=== PATIENT | female | born 1965 | race Caucasian/White ===

== ENCOUNTER → 2017-07-06 | Outpatient (CLI) | payer OTHER ==
[~2017-07-06] MED LIST: ADAL20KI SC; CALC600T9 PO; FOLI1TAB7 PO; IBUP1CAP9 PO; METH2.5T PO; PRD/1 PO; VITA1TAB4 PO
--- NOTE | 2017-07-06 16:11 | MAMMOGRAPHY REPORT ---
BILATERAL DIGITAL SCREENING MAMMOGRAM TOMOSYNTHESIS WITH CAD: 07/06/2017 CLINICAL HISTORY: Routine screening. Patient has no complaints. TECHNIQUE: Breast tomosynthesis in addition to standard 2D mammography was performed. Current study was also evaluated with a Computer Aided Detection (CAD) system. COMPARISON: Comparison is made to exams dated: 07/04/2016 mammogram, 05/26/2015 mammogram, 03/25/2014 m ammogram, 03/14/2013 mammogram, 06/01/2011 mammogram, and 05/07/2010 mammogram - [facility] nter. BREAST COMPOSITION: The tissue of both breasts is heterogeneously dense, which may obscure small mas ses. FINDINGS: No suspicious masses, calcifications, or areas of architectural distortion are noted in ei ther breast. There has been no significant interval change compared to prior exams. IMPRESSION: ACR BI-RADS CATEGORY 1: NEGATIVE There is no mammographic evidence of malignancy. A 1 year screening mammogram is recommended. The pa tient will receive written notification of the results. Approximately 10% of breast cancers are not detected with mammography. A negative mammographic report should not delay biopsy if a clinically suggestive mass is present. Becky Demarco M.D. ah/:07/06/2017 15:42:43 Salesperson Corsets: Eduarda STORM(R)(M), [facility] letter sent: Normal 1/2 BI-RADS Code: ACR BI-RADS Category 1: Negative
== END | disposition home or self-care (01) ==
LOC: C.MAMM 10:48
PROVIDERS: ATTEND Nurse Practitioner
DX: Z12.31 Encounter for screening mammogram for malignant neoplasm of breast (principal)

== ENCOUNTER → 2018-03-08 | Outpatient (CLI) | payer OTHER ==
[~2018-03-08] MED LIST changes: -FOLI1TAB7 PO; +FOLI1TAB8 PO
== END | disposition home or self-care (01) ==
LOC: C.LABPVFM 10:16
PROVIDERS: ATTEND Nurse Practitioner
DX: R82.99 Other abnormal findings in urine (principal)

== ENCOUNTER → 2018-03-27 | Outpatient (CLI) | payer OTHER | END | disposition home or self-care (01) | LOC: C.LABPVFM 17:03 | PROVIDERS: ATTEND Nurse Practitioner | DX: R39.9 Unspecified symptoms and signs involving the genitourinary system (principal) ==

== ENCOUNTER → 2018-06-15 | Outpatient (CLI) | payer OTHER ==
[~2018-06-15] MED LIST changes: -IBUP1CAP9 PO; +IBUP200C80 PO
[2018-06-15 13:14] LABS: BLOOD UREA NITROGEN 24 mg/dl (7-18); CALCIUM 8.6 mg/dl (8.5-10.1); CARBON DIOXIDE 27 mmol/L (21-32); CHOLESTEROL 210 mg/dl (0-200); CREATININE 0.65 mg/dl (0.60-1.20); GLUCOSE 97 mg/dl (70-99); LDL CHOLESTEROL CALCULATED 135 mg/dl; SODIUM 139 mmol/L (136-145)
== END | disposition home or self-care (01) ==
LOC: C.LABPVFM 07:46
PROVIDERS: ATTEND Nurse Practitioner
DX: Z00.00 Encounter for general adult medical examination without abnormal findings (principal)

== ENCOUNTER 2022-05-09 09:52 | Observation (INO) ==
--- NOTE | 2022-05-09 10:09 | Emergency Department Note ---
Impression & Plan COVID-19, Immunosuppression, Hypoxemia, Acute dehydration ED Provider Note NAME: BRYNN CUENCA AGE: 57 SEX: F : 1965 ARRIVES VIA: Walk-In INFORMANT: Patient, ED PROVIDER(S): Darrell Ross MD Chief Complaint: COVID-positive, hypoxemic HPI: Patient presents at the behest of her primary care doctor secondary to COVID symptoms and associated hypoxemia. The patient denies any chest pains or shortness of breath but noticed that her pulse oximeter this morning was that [id number]%. The patient is a former smoker last smoked in 2012. The patient denies any shortness of breath or chest pains. Patient has had some mild headache but no falls or trauma. The patient did develop symptoms beginning yesterday and took a home COVID test this morning. The patient does work for [employer] and [employer]. Patient was called by her PCP was referred here for further evaluation and treatment. The patient did not take her methotrexate this morning. The patient is not taking anything for symptoms at home. Patient also does complain of some mild associated body aches. No vomiting. Patient does state that she has had a change in her taste. The patient's not eaten anything this morning. ROS: See HPI for pertinent positives and negatives. A total of 10 systems were reviewed and otherwise negative. Past medical history: See below Surgical history: See below Social history: See below Physical Exam: GENERAL: NAD, wearing glasses, wearing a mask, non-toxic. EYE EXAM: Normal conjunctiva. PERRL, no anisocoria and EOM's grossly intact w/o pain. NECK: Supple, no nuchal rigidity, no adenopathy, non-tender. No signs of meningismus. FROM of the neck with good chin to chest and neck extension. No stridor. LUNGS: Clear to auscultation. Normal chest wall mechanics. HEART: NSR, no MRG. ABDOMEN: Abdomen soft, non-tender, normo-active bowel sounds, no masses, no r ebound or guarding. BACK: No CVA TTP. SKIN: No rashes and no bruising. UPPER EXTREMITIES: Upper extremities are grossly normal. LOWER EXTREMITIES: Grossly normal, no edema. NEURO EXAM: A&O x3, cranial nerves II-XII grossly intact, normal speech, moves all 4 extremities on command w/o issue. Differential diagnoses: Reactive airway disease, pneumonia, pneumothorax, COPD, CHF, infections, cardiac ischemia, pulmonary embolism, musculoskeletal, gastrointestinal, as well as other pathologies. Course: Patient was seen and evaluated the bedside. Full history physical exam was performed. EKG interpreted by me Sinus rhythm, rate of 79, normal intervals, normal axis, no obvious ST elevations. Imaging Studies: See Below Cardiac monitoring: An order was placed for continuous cardiac monitoring. The monitor shows a rate of 82 with sinus rhythm. MDM: Patient presented due to concern for hypoxemia in the setting of recent COVID illness the patient became symptomatic yesterday to go home COVID test today that was positive. Blood work was obtained along with a chest x-ray and the patient was ordered IV 6 mg of dexamethasone. Chest x-ray is clear. The patient did not complain of any shortness of breath but given the patient's history of lung disease, former smoking history as well as immunosuppressive therapy on methotrexate given history of rheumatoid arthritis do think that the patient would benefit from continued observation and treatment at this time. Patient is a normal white count H&H and platelet count. Kidney function is unremarkable. Patient did have some prerenal azotemia and did receive IV fluids. The patient is COVID-positive. Troponin is not elevated. I did speak with the on-call hospitalist Dr. Dial and the patient was admitted to the medicine service. Past Med/Surg History Medical History Chronic obstructive pulmonary disease Chronic steroid use GERD (gastroesophageal reflux disease) History of TMJ syndrome clicks on the right side, never locked. Hyperlipidemia Mass of soft tissue Obesity Rheumatoid arthritis Situational anxiety Surgical History H/O hand surgery right hand with tendon repair History of carpal tunnel release right History of colonoscopy History of D&C S/P trigger finger release left Family History Unknown Hypertension Other Alzheimer disease COPD (chronic obstructive pulmonary disease) Cancer Diabetes Hypothyroidism No family history of adverse response to anesthesia Denies family history of Ovarian cancer Prostate cancer Osteoporosis Myocardial infarction Breast cancer Colorectal cancer Social History Smoking Status: Former smoker Tobacco Type: Cigarettes Years Smoked: 32; Cigarettes Per Day: 20; Second Hand Exposure: Yes; Hx Alcohol Use: Yes Alcohol Intake Frequency: Monthly or Less Alcohol Intake Frequency Comment: Very rarely Hx Substance Use: No Preferred Language: Andorran Communication Ability: Effective Visual Impairment: No Limitations Hearing Ability: Normal Capsule Maker Required: No Beliefs That Will Affect Care: None marital status: Current Living Situation: Spouse current occupational status: employed 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 Feels Safe at Home: Yes caffeine: No Dental Care, Regularly: Yes Physical Activity Frequency: 3-4 Times per Week Seatbelt Use: always Sunscreen Use: Yes Assistive Devices: Glasses Allergies Allergies Allergy/AdvReac Type Severity Reaction Status Date / Time naproxen Allergy Unknown REDNESS, Verified 02/16/22 08:39 SHAKINESS, DIFFICULTY BREATHING Home Meds Home Medications Medication Instructions Recorded Confirmed calcium carbonate 600 mg-vitamin 1 tab PO QAM 06/04/19 02/16/22 D3 10 mcg (400 unit) tablet (Calcium 600 + D(3)) fluticasone propionate 50 1 sprays INTRANASAL BID PRN #1 gm 06/04/19 02/16/22 mcg/actuation nasal spray,suspension vitamin E (dl, acetate) 180 mg 400 units PO QAM 06/04/19 02/16/22 (400 unit) capsule cholecalciferol (vitamin D3) 25 1,000 units PO QAM #90 cap 06/14/19 02/16/22 mcg (1,000 unit) capsule cyanocobalamin (vitamin B-12) 1,000 mcg PO QAM tab 06/14/19 02/16/22 1,000 mcg tablet folic acid 1 mg tablet 1 mg PO QAM tab 06/14/19 02/16/22 methotrexate sodium 2.5 mg tablet 20 mg PO WK tab 06/14/19 02/16/22 fluocinonide 0.05 % topical 1 appln TOPICAL TID PRN gm 12/27/19 02/16/22 ointment leflunomide 10 mg tablet (Arava) 10 mg PO QAM 12/27/19 02/16/22 fexofenadine 180 mg tablet 180 mg PO QAM 01/24/22 02/16/22 (Evy Allergy) meclizine 25 mg tablet 25 mg PO UD PRN 01/24/22 02/16/22 prednisone 20 mg tablet 20 mg PO .COMPLEX PRN 01/24/22 02/16/22 triamcinolone acetonide 0.1 % 1 appln TOP BID PRN 01/24/22 02/16/22 topical ointment Previous Rx's Medication Instructions Recorded adalimumab 40 mg/0.8 mL 40 mg SQ Q14D #3 ml 11/11/19 subcutaneous syringe kit (Humira) valacyclovir 500 mg tablet 500 mg PO BID PRN #6 tab 08/12/21 albuterol sulfate 90 mcg/actuation 2 puff INHALATION Q6H PRN #8.5 g 10/04/21 aerosol inhaler (Ventolin HFA) benzonatate 100 mg capsule 100 mg PO TID PRN #30 cap 02/04/22 nebulizer and neb kit #1 ea 02/04/22 albuterol sulfate 2.5 mg INHALATION QID PRN #180 ml 02/18/22 atorvastatin 10 mg tablet 10 mg PO HS #90 tab 02/18/22 escitalopram oxalate 20 mg tablet 20 mg PO QAM #90 tab 02/18/22 omeprazole 20 mg capsule,delayed 20 mg PO QAM #90 cap 02/18/22 release fluticasone furoate 100 1 inh INHALATION DAILY PRN #3 02/28/22 mcg-vilanterol 25 mcg/dose inhaler inhalation powder (Breo Ellipta) Results & Data (ED) Vital Signs Vital Signs - 24 hr 05/09/22 09:53 05/09/22 11:01 05/09/22 11:16 Temperature 36.4 C L Temperature Source Temporal Artery Scan Pulse Rate 91 H 91 H 82 Pulse Rate from SpO2 Sensor 81 Pulse Rhythm Regular Respiratory Rate 16 16 19 Blood Pressure 125/82 124/91 Blood Pressure Mean 96 102 Pulse Oximetry 94 94 91 Oxygen Delivery Method Room Air Room Air Room Air Sepsis Recent Fever Within 48 Hours No Sepsis New/Unexplained Change in Mental Status No Sepsis Action Taken by Nursing No Action Required 05/09/22 11:30 05/09/22 12:00 05/09/22 12:30 Temperature Temperature Source Pulse Rate 72 74 72 Pulse Rate from SpO2 Sensor 73 75 Pulse Rhythm Respiratory Rate 23 18 14 Blood Pressure 127/84 116/84 123/86 Blood Pressure Mean 98 94 98 Pulse Oximetry 91 91 Oxygen Delivery Method Sepsis Recent Fever Within 48 Hours Sepsis New/Unexplained Change in Mental Status Sepsis Action Taken by Nursing 05/09/22 13:00 05/09/22 13:42 Temperature Temperature Source Pulse Rate 72 72 Pulse Rate from SpO2 Sensor 73 Pulse Rhythm Respiratory Rate 20 20 Blood Pressure 124/90 124/90 Blood Pressure Mean 101 Pulse Oximetry 93 93 Oxygen Delivery Method Room Air Sepsis Recent Fever Within 48 Hours Sepsis New/Unexplained Change in Mental Status Sepsis Action Taken by Care Home Medications Current Medication List: was personally reviewed by me Laboratory Data Attestation: I reviewed the patient's lab results. Result diagrams: 05/09/22 10:54 05/09/22 12:06 Lab Results 05/09/22 05/09/22 05/09/22 Range/Units 10:54 10:54 10:54 WBC 6.60 (4.8-10.8) K/uL RBC 4.71 (4.2-5.4) M/uL Hgb 14.5 (12.0-16.0) g/dL Hct 44.1 (37-47) % MCV 93.6 (80-100) fL MCH 30.8 (25-34) pg MCHC 32.9 (32-36) g/dL RDW Std Deviation 49.9 H (36.4-46.3) fL RDW Coeff of Ivonne 14.7 H (11.5-14.5) % Plt Count 233 (130-400) K/uL MPV 10.5 H (7.4-10.4) fL Immature Gran % (Auto) 0.0 % Neut % (Auto) 50.2 % Lymph % (Auto) 22.6 % [place] % (Auto) 26.7 % Eos % (Auto) 0.2 % Baso % (Auto) 0.3 % Neut # (Auto) 3.32 (1.4-6.5) K/uL Lymph # (Auto) 1.49 (1.2-3.4) K/uL [place] # (Auto) 1.76 H (0.11-0.59) K/uL Eos # (Auto) 0.01 (0-0.5) K/uL Baso # (Auto) 0.02 (0-0.2) K/uL Immature Gran # (Auto) 0.00 (0.00-0.02) K/uL VBG pH 7.37 (7.36-7.41) VBG pCO2 45 (38-50) mmHg VBG pO2 61 mmHg VBG HCO3 26 mmol/L VBG O2 Saturation 91.1 % VBG Base Excess 0.3 mEq/L Sodium 137 (136-145) mmol/L Potassium TNP Chloride 104 (98-107) mmol/L Carbon Dioxide 25 (21-32) mmol/L Anion Gap 8 (3-11) BUN 18 (6-23) mg/dl Creatinine 0.72 (0.6-1.2) mg/dl Est Cr Clr Drug Dosing 82.4 ml/min Est GFR ( Amer) 106.2 ml/min Est GFR (Non-Af Amer) 91.7 ml/min BUN/Creatinine Ratio 25.0 H (10-20) Glucose 89 (70-99(Fasting)) mg/dl Calcium 9.2 (8.5-10.1) mg/dl Magnesium 2.0 (1.7-2.4) mg/dl Total Bilirubin 0.4 (0.2-1.0) mg/dl AST TNP ALT 32 (7-52) U/L Alkaline Phosphatase 67 (34-104) U/L Troponin I High Sens 6.9 (0-14) pg/ml Total Protein 7.6 (6.0-8.3) gm/dl Albumin 4.3 (3.4-5.0) gm/dl Globulin 3.3 (2.5-4.0) gm/dl Albumin/Globulin Ratio 1.3 (0.9-2) SARS-CoV-2, RNA, NAAT (NEGATIVE) 05/09/22 05/09/22 Range/Units 11:00 12:06 WBC (4.8-10.8) K/uL RBC (4.2-5.4) M/uL Hgb (12.0-16.0) g/dL Hct (37-47) % MCV (80-100) fL MCH (25-34) pg MCHC (32-36) g/dL RDW Std Deviation (36.4-46.3) fL RDW Coeff of Ivonne (11.5-14.5) % Plt Count (130-400) K/uL MPV (7.4-10.4) fL Immature Gran % (Auto) % Neut % (Auto) % Lymph % (Auto) % [place] % (Auto) % Eos % (Auto) % Baso % (Auto) % Neut # (Auto) (1.4-6.5) K/uL Lymph # (Auto) (1.2-3.4) K/uL [place] # (Auto) (0.11-0.59) K/uL Eos # (Auto) (0-0.5) K/uL Baso # (Auto) (0-0.2) K/uL Immature Gran # (Auto) (0.00-0.02) K/uL VBG pH (7.36-7.41) VBG pCO2 (38-50) mmHg VBG pO2 mmHg VBG HCO3 mmol/L VBG O2 Saturation % VBG Base Excess mEq/L Sodium (136-145) mmol/L Potassium 3.7 Chloride (98-107) mmol/L Carbon Dioxide (21-32) mmol/L Anion Gap (3-11) BUN (6-23) mg/dl Creatinine (0.6-1.2) mg/dl Est Cr Clr Drug Dosing ml/min Est GFR ( Amer) ml/min Est GFR (Non-Af Amer) ml/min BUN/Creatinine Ratio (10-20) Glucose (70-99(Fasting)) mg/dl Calcium (8.5-10.1) mg/dl Magnesium (1.7-2.4) mg/dl Total Bilirubin (0.2-1.0) mg/dl AST 28 ALT (7-52) U/L Alkaline Phosphatase (34-104) U/L Troponin I High Sens (0-14) pg/ml Total Protein (6.0-8.3) gm/dl Albumin (3.4-5.0) gm/dl Globulin (2.5-4.0) gm/dl Albumin/Globulin Ratio (0.9-2) SARS-CoV-2, RNA, NAAT POSITIVE A* (NEGATIVE) Administered Medications Discontinued Medications Acetaminophen (Acetaminophen 500 Mg Tab) 1,000 mg PO NOW STA Stop: 05/09/22 10:22 Last Admin: 05/09/22 11:02 Dose: 1,000 mg Documented by: [id number] Dexamethasone Sodium Phosphate (DexamethasonePf 10 Mg/Ml Vial) 6 mg IV NOW ONE Stop: 05/09/22 10:18 Last Admin: 05/09/22 11:01 Dose: 6 mg Documented by: [id number] Sodium Chloride (Nss 1000ml) 1,000 mls @ 999 mls/hr IV .Q1H1M REJI Stop: 05/09/22 11:30 Last Infusion: 05/09/22 12:21 Dose: 0 mls/hr Documented by: [id number] Admin: 05/09/22 11:01 Dose: 999 mls/hr Documented by: [id number] Ondansetron HCl (Ondansetron Inj 2 Mg/Ml 2 Ml Vial) 4 mg IV NOW STA Stop: 05/09/22 10:22 Last Admin: 05/09/22 11:01 Dose: 4 mg Documented by: [id number] Imaging Data Radiologist's Impression: Chest X-Ray 05/09/22 10:18 XR chest 1V portable CLINICAL HISTORY: Dyspnea TECHNIQUE: Single frontal radiograph of the chest was obtained. Comparison: Comparison is made to chest radiograph 02/04/2022 FINDINGS: No lines and tubes are seen. The cardiomediastinal silhouette is normal. The lungs are clear. No evidence of pleural effusion or pneumothorax. IMPRESSION: No acute chest disease. ACT 112: Negative or not required by law. Electronically signed by: Pj Hoffman M.D. 05/09/2022 10:45 AM Discharge Plan Visit Data Chief Complaint: Illness Stated Complaint: COUGH,OWEN,BODY ACHE,HIGH PULSE ED Provider: Darrell Ross Discharge Problem: COVID-19, Immunosuppression, Hypoxemia, Acute dehydration Patient Disposition: Admitted As Inpatient Discharge Instructions Interventions: ED Discharge Assessment Last Done: 05/09/22 13:42 Forms Stand Alone Forms: My [facility] Prescriptions Prescriptions: No Action Humira 40 mg/0.8 mL syringe kit 40 mg SQ Q14D Qty: 3 RF: 0 valacyclovir 500 mg tablet 500 mg PO BID PRN (Reason: cold sore outbreak) Qty: 6 RF: 4 albuterol sulfate [Ventolin HFA] 90 mcg/actuation HFA aerosol inhaler 2 puff inhalation Q6H PRN (Reason: bronchospasm) Qty: 8.5 RF: 3 benzonatate 100 mg capsule 100 mg PO TID PRN (Reason: cough) Qty: 30 RF: 3 (DME) nebulizer and neb kit See Rx Instructions .Route .MEDSUPPLY Qty: 1 RF: 0 albuterol sulfate 2.5 mg /3 mL (0.083 %) solution for nebulization 2.5 mg inhalation QID PRN (Reason: shortness of breath or wheezing) Qty: 180 RF: 3 atorvastatin 10 mg tablet 10 mg PO HS Qty: 90 RF: 3 escitalopram oxalate 20 mg tablet 20 mg PO QAM Qty: 90 RF: 3 omeprazole 20 mg capsule,delayed release(DR/EC) 20 mg PO QAM Qty: 90 RF: 3 Breo Ellipta 100-25 mcg/dose blister with device 1 inh inhalation DAILY PRN (Reason: allergy symptoms) Qty: 3 RF: 3 leflunomide [Arava] 10 mg tablet 10 mg PO QAM RF: 0 fluticasone propionate 50 mcg/actuation spray,suspension 1 sprays intranasal BID PRN (Reason: allergy symptoms) Qty: 1 RF: 0 vitamin E (dl, acetate) 400 unit capsule 400 units PO QAM RF: 0 calcium carbonate-vitamin D3 [Calcium 600 + D(3)] 600 mg(1,500mg) -400 unit tablet 1 tab PO QAM RF: 0 cholecalciferol (vitamin D3) 1,000 unit capsule 1,000 units PO QAM Qty: 90 RF: 0 cyanocobalamin (vitamin B-12) 1,000 mcg tablet 1,000 mcg PO QAM RF: 0 folic acid 1 mg tablet 1 mg PO QAM RF: 0 methotrexate sodium 2.5 mg tablet 20 mg PO WK RF: 0 fluocinonide 0.05 % ointment 1 appln topical TID PRN (Reason: rash) RF: 0 prednisone 20 mg tablet 20 mg PO .COMPLEX PRN (Reason: RA Flare Ups) RF: 0 fexofenadine [Evy Allergy] 180 mg tablet 180 mg PO QAM RF: 0 meclizine 25 mg tablet 25 mg PO UD PRN (Reason: dizziness) RF: 0 triamcinolone acetonide 0.1 % ointment 1 appln TOP BID PRN (Reason: Skin Irritation) RF: 0 Referrals Referrals: Nicole Wilburn CRNP [Primary Care Provider] -
[2022-05-09] MEDS ORDERED: dexAMETHasone**PF** 10 MG/ML VIAL IV ONE (10:17)
[2022-05-09] MEDS ORDERED: ACETAMINOPHEN 500 MG TAB PO STA (10:21)
[2022-05-09] MEDS ORDERED: ONDANSETRON INJ 2 MG/ML 2 ML VIAL IV STA (10:21)
[2022-05-09] MEDS ORDERED: SODIUM CHLORIDE 0.9% 1000ML 1,000 ML IV SCH (10:30)
--- NOTE | 2022-05-09 10:46 | XRay Report ---
XR chest 1V portable CLINICAL HISTORY: Dyspnea TECHNIQUE: Single frontal radiograph of the chest was obtained. Comparison: Comparison is made to chest radiograph 02/04/2022 FINDINGS: No lines and tubes are seen. The cardiomediastinal silhouette is normal. The lungs are clear. No evid ence of pleural effusion or pneumothorax. IMPRESSION: No acute chest disease. ACT 112: Negative or not required by law. Electronically signed by: Pj Hoffman M.D. 05/09/2022 10:45 AM
[2022-05-09 11:07] LABS: Base Excess VBG 0.3 mEq/L; HCO3 VBG 26 mmol/L; Oxygen Saturation VBG 91.1 %; PCO2 VBG 45 mmHg (38-50); PO2 VBG 61 mmHg; pH VBG 7.37 (7.36-7.41)
[2022-05-09 11:18] LABS: Basophils # (auto) 0.02 K/uL (0-0.2); Basophils % (auto) 0.3 %; Eosinophils # (auto) 0.01 K/uL (0-0.5); Eosinophils % (auto) 0.2 %; Hematocrit (blood only) 44.1 % (37-47); Hemoglobin 14.5 g/dL (12.0-16.0); Lymphocytes # (auto) 1.49 K/uL (1.2-3.4); Lymphocytes % (auto) 22.6 %; Mean Corpuscular Hemoglobin 30.8 pg (25-34); Mean Corpuscular Hgb Conc 32.9 g/dL (32-36); Mean Corpuscular Volume 93.6 fL (80-100); Mean Platelet Volume 10.5 fL (7.4-10.4); Monocytes # (auto) 1.76 K/uL (0.11-0.59); Monocytes % (auto) 26.7 %; Neutrophils # (auto) 3.32 K/uL (1.4-6.5); Neutrophils % (auto) 50.2 %; Platelet Count 233 K/uL (130-400); RDW Coefficient of Variation 14.7 % (11.5-14.5); RDW Standard Deviation 49.9 fL (36.4-46.3); Red Blood Count 4.71 M/uL (4.2-5.4)
[2022-05-09 11:36] LABS: Alanine Aminotransferase 32 U/L (7-52); Albumin Globulin Ratio 1.3 (0.9-2); Albumin Level 4.3 gm/dl (3.4-5.0); Alkaline Phosphatase 67 U/L (34-104); Anion Gap 8 (3-11); Bilirubin,Total 0.4 mg/dl (0.2-1.0); Blood Urea Nitrogen 18 mg/dl (6-23); Calcium 9.2 mg/dl (8.5-10.1); Carbon Dioxide 25 mmol/L (21-32); Chloride 104 mmol/L (98-107); Creatinine Clr Calc Pharmacy 82.4 ml/min; Est GFR (African American) 106.2 ml/min; Est GFR (Non-African American) 91.7 ml/min; Globulin 3.3 gm/dl (2.5-4.0); Glucose 89 mg/dl (70-99(Fasting)); Sodium 137 mmol/L (136-145); Total Protein 7.6 gm/dl (6.0-8.3); Troponin I High Sensitivity 6.9 pg/ml (0-14)
--- NOTE | 2022-05-09 12:37 | History & Physical Report ---
Date of Service May 09, 2022 Assessment & Plan (1) COVID-19: Plan: Admitted on day 2 of illness Vaccinated and boosted VOID isolation precautions Remdesivir - initial 5 day course Dexamethasone 6mg IV daily Hold leflunomide and methotrexate Aim O2 sats > 90% (2) Allergic rhinitis: Plan: Continue fexofenadine 180mg PO daily (3) Hyperlipidemia: Plan: Continue atorvastatin 10mg HS (4) COPD (chronic obstructive pulmonary disease): Plan: Continue Breo Ellipta or hospital formulary equivalent. Usually she uses this PRN but recommend regular use with COVID. (5) Rheumatoid arthritis: Plan: Hold methotrexate, leflunomide and Humira. Dexamethasone should keep flares away and given no flare in years suspect low liklihood of this. (6) Situational anxiety: Plan: Continue Lexapro 20mg PO daily (7) GERD (gastroesophageal reflux disease): Plan: Switch omeprazole for pantoprazole per hospital formulary Plan: VTE prophylaxis - given increased risk with COVID will use Lovenox 40mg SQ BID Diet - regular Disposition - observation status to med/surg Admission and Anticipated Discharge Date Admission Date: May 09, 2022 History of Present Illness Chief Complaint: Hypoxia Primary Care Provider: BEL Vazquez Eduarda Lara is a 57 year old female who presents to the ER with COVID-19 symptoms. She reports her symptoms started yesterday. Symptoms including fatigue, dizzy, headache, coughing up clear phlegm, generalized body aches. She took a home COVID test which was positive. She denies any shortness of breath, chest pain, abdominal pain or diarrhea. She is vaccinated x2 and boosted x2. Last booster recevied was Pfizer in 12/2021. She has rheumatoid arthritis but no flare up in years. She is controlled on Humira, methotrexate and leflunomide. S he did not take her usual leflunomide and methotrexate yesterday due to feeling unwell. She is not usually on home O2. She has mild COPD and takes Breo Ellipta only as needed. In the ER she was noted to be hypoxic with O2 sats 88-90% on room air at rest. She was therefore given 6mg IV dexamethasone and referred to medicine for admission and ongoing management og COVID-19. Allergies Allergy/AdvReac Type Severity Reaction Status Date / Time naproxen Allergy Unknown REDNESS, Verified 02/16/22 08:39 SHAKINESS, DIFFICULTY BREATHING Home Medications Medication Instructions Recorded Confirmed Type calcium carbonate 600 mg-vitamin 1 tab PO QAM 06/04/19 05/09/22 History D3 10 mcg (400 unit) tablet (Calcium 600 + D(3)) fluticasone propionate 50 1 sprays INTRANASAL BID PRN #1 gm 06/04/19 05/09/22 History mcg/actuation nasal spray,suspension vitamin E (dl, acetate) 180 mg 400 units PO QAM 06/04/19 05/09/22 History (400 unit) capsule cholecalciferol (vitamin D3) 25 1,000 units PO QAM #90 cap 06/14/19 05/09/22 His tory mcg (1,000 unit) capsule cyanocobalamin (vitamin B-12) 1,000 mcg PO QAM tab 06/14/19 05/09/22 History 1,000 mcg tablet folic acid 1 mg tablet 1 mg PO QAM tab 06/14/19 05/09/22 History methotrexate sodium 2.5 mg tablet 20 mg PO WK tab 06/14/19 05/09/22 History adalimumab 40 mg/0.8 mL 40 mg SQ Q14D #3 ml 11/11/19 05/09/22 Rx subcutaneous syringe kit (Humira) fluocinonide 0.05 % topical 1 appln TOPICAL TID PRN gm 12/27/19 05/09/22 History ointment leflunomide 10 mg tablet (Arava) 10 mg PO QAM 12/27/19 05/09/22 History valacyclovir 500 mg tablet 500 mg PO BID PRN #6 tab 08/12/21 05/09/22 Rx albuterol sulfate 90 mcg/actuation 2 puff INHALATION Q6H PRN #8.5 g 10/04/21 05/09/22 Rx aerosol inhaler (Ventolin HFA) fexofenadine 180 mg tablet 180 mg PO QAM 01/24/22 05/09/22 History (Evy Allergy) meclizine 25 mg tablet 25 mg PO UD PRN 01/24/22 05/09/22 History prednisone 20 mg tablet 20 mg PO .COMPLEX PRN 01/24/22 05/09/22 History triamcinolone acetonide 0.1 % 1 appln TOP BID PRN 01/24/22 05/09/22 History topical ointment benzonatate 100 mg capsule 100 mg PO TID PRN #30 cap 02/04/22 05/09/22 Rx nebulizer and neb kit #1 ea 02/04/22 02/16/22 Rx albuterol sulfate 2.5 mg INHALATION QID PRN #180 ml 02/18/22 05/09/22 Rx atorvastatin 10 mg tablet 10 mg PO HS #90 tab 02/18/22 05/09/22 Rx escitalopram oxalate 20 mg tablet 20 mg PO QAM #90 tab 02/18/22 05/09/22 Rx omeprazole 20 mg capsule,delayed 20 mg PO QAM #90 cap 02/18/22 05/09/22 Rx release fluticasone furoate 100 1 inh INHALATION DAILY PRN #3 02/28/22 05/09/22 Rx mcg-vilanterol 25 mcg/dose inhaler inhalation powder (Breo Ellipta) Past Med/Surg History Medical History (Updated 05/10/22 @ 07:08 by Jesús Dial MD) Chronic obstructive pulmonary disease Chronic steroid use GERD (gastroesophageal reflux disease) History of TMJ syndrome clicks on the right side, never locked. Hyperlipidemia Mass of soft tissue Obesity Rheumatoid arthritis Situational anxiety Surgical History H/O hand surgery right hand with tendon repair History of carpal tunnel release right History of colonoscopy History of D&C S/P trigger finger release left Family History Unknown Hypertension Other Alzheimer disease COPD (chronic obstructive pulmonary disease) Cancer Diabetes Hypothyroidism No family history of adverse response to anesthesia Denies family history of Ovarian cancer Prostate cancer Osteoporosis Myocardial infarction Breast cancer Colorectal cancer Social History Smoking Status: Former smoker Tobacco Type: Cigarettes Years Smoked: 32; Cigarettes Per Day: 20; Smoking End Date: january 10 2013; Second Hand Exposure: No; Do You Dip or Chew Tobacco: No; Tobacco Cessation Education Requested by Patient: No Hx Alcohol Use: No Hx Substance Use: No Preferred Language: Slovak Communication Ability: Effective Visual Impairment: No Limitations Hearing Ability: Normal Victim Advocate Required: No Beliefs That Will Affect Care: None marital status: Current Living Situation: Spouse current occupational status: employed current occupation: [employer] Other Information That Helps Us Care for You: No Feels Safe at Home: Yes Safety Concerns: Feels Safe At This Time caffeine: No Dental Care, Regularly: Yes Physical Activity Frequency: 3-4 Times per Week Seatbelt Use: always Sunscreen Use: Yes Assistive Devices: Glasses Review of Systems Review of Systems: All systems reviewed & are unremarkable except as noted in HPI & below Physical Exam Constitutional: WD/WN, vitals as above ENMT: external ear and nose normal, oropharynx normal Respiratory: normal respiratory effort, lungs clear to auscultation Cardiovascular: RRR, no murmur, no edema Gastrointestinal (Abdomen): normal bowel sounds, soft, nontender, no hepatosplenomegaly Musculoskeletal: no cyanosis or clubbing, extremities motor strength 5/5 Skin: no rashes, warm and dry Neurologic: moves all extremities and awake; not confused Psychiatric: A+Ox3, euthymic affect Results & Data Results & Data ([facility]) Vital Signs (Past 12 Hours) Vital Signs Temp Pulse Resp BP Pulse Ox 05/09/22 12:00 74 18 116/84 91 05/09/22 11:30 72 23 127/84 91 05/09/22 11:16 82 19 124/91 91 05/09/22 11:01 91 H 16 94 05/09/22 09:53 36.4 C L 91 H 16 125/82 94 Laboratory Results Abnormal lab results 05/09/22 05/09/22 05/09/22 Range/Units 10:54 10:54 11:00 RDW Std Deviation 49.9 H (36.4-46.3) fL RDW Coeff of Ivonne 14.7 H (11.5-14.5) % MPV 10.5 H (7.4-10.4) fL [place] # (Auto) 1.76 H (0.11-0.59) K/uL BUN/Creatinine Ratio 25.0 H (10-20) SARS-CoV-2, RNA, NAAT POSITIVE A* (NEGATIVE) Diagnostic Findings XR chest 1V portable CLINICAL HISTORY: Dyspnea TECHNIQUE: Single frontal radiograph of the chest was obtained. Comparison: Comparison is made to chest radiograph 02/04/2022 FINDINGS: No lines and tubes are seen. The cardiomediastinal silhouette is normal. The lungs are clear. No evidence of pleural effusion or pneumothorax. IMPRESSION: No acute chest disease. Medications Administered ER Medications Given: NSS 1L bolus Dexamethasone 6mg IV Acetaminophen 1000mg PO Ondansetron 4mg IV ECG Indication: weakness Rate (beats per minute): 79 Rhythm: normal sinus Findings: no acute ischemic change Comparison ECG Date: no prior available Code Status & VTE Plan Code Status Full VTE Prophylaxis Plan VTE Prophylaxis will be ordered: Yes PG Care Time/CCT Total # of Minutes Spent Total Time Spent with Patient: Total time spent is greater than 50% in coordination of care (as documented) at patient's floor/unit and/or counseling patient: Coding Level of Care Code INT OBSERVATION CARE 50M LVL 2 Diagnoses COVID-19 U07.1 Allergic rhinitis J30.9 Hyperlipidemia E78.5 COPD (chronic obstructive pulmonary disease) J44.9 Rheumatoid arthritis M06.9 Situational anxiety F41.8 GERD (gastroesophageal reflux disease) K21.9
[2022-05-09 12:44] LABS: Potassium 3.7 mmol/L (3.5-5.1)
[2022-05-09] MEDS ORDERED: REMDESIVIR 200 MG in SODIUM CHLORIDE 0.9% 210 ML IV ONE (13:15)
--- NOTE | 2022-05-09 13:15 | Electrocardiogram Report ---
Test Reason : Blood Pressure : / mmHG Vent. Rate : 079 BPM Atrial Rate : 079 BPM P-R Int : 132 ms QRS Dur : 082 ms QT Int : 384 ms P-R-T Axes : 036 055 040 degrees QTc Int : 440 ms Poor data quality, interpretation may be adversely affected Normal sinus rhythm Normal ECG No previous ECGs available Confirmed by Demetris Edmondson ([id number]) on 05/09/2022 1:15:14 PM Referred By: REFERRED SELF Confirmed By:Demetris Edmondson
[2022-05-09] MEDS ORDERED: POLYETHYLENE (MIRALAX) 17 GM PACK PO PRN (14:09)
[2022-05-09] MEDS ORDERED: ACETAMINOPHEN 325 MG TAB PO PRN (14:09)
[2022-05-09] MEDS ORDERED: ONDANSETRON INJ 2 MG/ML 2 ML VIAL IV PRN (14:09)
[2022-05-09] MEDS ORDERED: BENZONATATE 100 MG CAPSULE PO PRN (18:54)
[2022-05-09] MEDS ORDERED: ALBUTEROL HFA 8 GM INHALER INH PRN (18:54)
[2022-05-09] MEDS: ENOXAPARIN INJ 40 MG/0.4 ML SYR SQ SCH (20:42)
[2022-05-09] MEDS ORDERED: ATORVASTATIN 10 MG TAB PO SCH (21:00)
[2022-05-10] MEDS: ENOXAPARIN INJ 40 MG/0.4 ML SYR SQ SCH (08:17)
[2022-05-10] MEDS ORDERED: FLUTICASONE/VILANTEROL 100/25MCG 14 PUFFS/INHALER INH SCH (09:00)
[2022-05-10] MEDS ORDERED: FOLIC ACID 1 MG TAB PO SCH (09:00)
[2022-05-10] MEDS ORDERED: CYANOCOBALAMIN (B-12) 500 MCG TABLET PO SCH (09:00)
[2022-05-10] MEDS ORDERED: PANTOprazole 40 MG TAB PO SCH (09:00)
[2022-05-10] MEDS ORDERED: ESCITALOPRAM OXALATE 20 MG TAB PO SCH (09:00)
[2022-05-10] MEDS ORDERED: CHOLECALCIFEROL 1,000 UNITS 25 MCG TAB PO SCH (09:00)
[2022-05-10] MEDS ORDERED: CALCIUM 600MG + VIT D 400 IU TAB PO SCH (09:00)
[2022-05-10] MEDS ORDERED: FEXOFENADINE HCL 180 MG TAB PO SCH (09:00)
[2022-05-10] MEDS ORDERED: dexAMETHasone 6 MG in SYRINGE 0 ML IV SCH (09:00)
[2022-05-10] MEDS ORDERED: REMDESIVIR 100 MG in SODIUM CHLORIDE 0.9% 230 ML IV SCH (12:00)
--- NOTE | 2022-05-10 13:42 | Discharge Summary ---
Date of Service May 10, 2022 Admission HPI Per Admitting Provider Eduarda Lara is a 57 year old female who presents to the ER with COVID-19 symptoms. She reports her symptoms started yesterday. Symptoms including fatigue, dizzy, headache, coughing up clear phlegm, generalized body aches. She took a home COVID test which was positive. She denies any shortness of breath, chest pain, abdominal pain or diarrhea. She is vaccinated x2 and boosted x2. Last booster recevied was locr in 12/2021. She has rheumatoid arthritis but no flare up in years. She is controlled on Humira, methotrexate and leflunomide. She did not take her usual leflunomide and methotrexate yesterday due to feeling unwell. She is not usually on home O2. She has mild COPD and takes Breo Ellipta only as needed. In the ER she was noted to be hypoxic with O2 sats 88-90% on room air at rest. She was therefore given 6mg IV dexamethasone and referred to medicine for admission and ongoing management og COVID-19. Principal Diagnosis Covid-19 Discharge Exam Constitutional WD/WN, vitals as above Eyes EOM intact bilaterally; no conjunctival abnormality ENMT external ear and nose normal, oropharynx normal Neck trachea midline, no thyromegaly normal visual inspection Respiratory normal respiratory effort, lungs clear to auscultation no respiratory distress Cardiovascular RRR, no murmur, no edema Gastrointestinal (Abdomen) Inspection/Auscultation: abdomen normal to inspection; abdomen not distended Musculoskeletal no cyanosis or clubbing, extremities motor strength 5/5 Skin no rashes, warm and dry Neurologic moves all extremities and awake Psychiatric Orientation: alert, oriented to person and cooperative Discharge Data Allergies Allergy/AdvReac Type Severity Reaction Status Date / Time naproxen Allergy Unknown REDNESS, Verified 02/16/22 08:39 SHAKINESS, DIFFICULTY BREATHING Consultations 05/09/22 12:17 ED Decision to Admit Stat Hospital Course (1) COVID-19: Admitted on day 2 of illness. Vaccinated and boosted. - Remdesivir & dexamethasone started on admission. - On first day of admission, patient's SpO2 was 91-92% on RA. With walking, her SpO2 climbed to 93-94% pointing toward atelectasis. Patient had no symptoms of shortness of breath. Patient preferred going home. As she required no O2, dexamethasone was discontinued on discharge. She will follow home SpO2 with her home pulse ox and touch base with PCP if it falls lower. (2) Allergic rhinitis: Continue fexofenadine 180mg PO daily (3) Hyperlipidemia: Continue atorvastatin 10mg HS (4) COPD (chronic obstructive pulmonary disease): Continue Breo Ellipta or hospital formulary equivalent. Usually she uses this PRN but recommend regular use with COVID. (5) Rheumatoid arthritis: Hold methotrexate, leflunomide and Humira for 10 days. (6) Situational anxiety: Continue Lexapro 20mg PO daily (7) GERD (gastroesophageal reflux disease): Switch omeprazole for pantoprazole per hospital formulary VTE prophylaxis - given increased risk with COVID will use Lovenox 40mg SQ BID Diet - regular Disposition - observation status to med/surg Total Time Total Time Spent Total Time Spent (In Minutes): 35 Discharge Plan Discharge Items Patient Disposition: Home - Self-Care Reason For Visit: COVID-19, HYPOXIA Discharge Diagnosis: Covid-19 Activity: Resume your previous activity Non-emergency contact: Primary Care Provider Call non-emergency contact if: your symptoms worsen Follow-up/Referrals: Nicole Wilburn CRNP [Primary Care Provider] - 05/19/22 10:30 am Diet: Regular Addtl Attending Provider Instructions: Ms. Lara, You were admitted to the hospital with Covid-19. Fortunately, your labs and chest x-ray looked good. Your oxygen was low, but luckily stayed stable, and is actually higher when you walk around. I think this likely means it is from atelectasis (squished lung) that improves when you stand up and fully expand your lungs. For the next few days, please walk around plenty to be sure you keep your lungs expanded and prevent blood clots. Follow your oxygen levels at home and if you dip below 90% and do not bounce back with deep breaths and walking, please contact your PCP. If you feel well, home O2 could be arranged without being admitted. However, if you get more shortness of breath, cough, or start to have fevers/chills, or other concerning symptoms, please come back to the ER. As we discussed, please hold your RA medications for 10 days, then restart them with approval from your PCP. Pending Studies at Discharge: No Stand-Alone Forms: My [facility], Smoking Cessation Medications and DC Order Prescriptions: Continued Humira 40 mg/0.8 mL syringe kit 40 mg SQ Q14D Qty: 3 RF: 0 valacyclovir 500 mg tablet 500 mg PO BID PRN (Reason: cold sore outbreak) Qty: 6 RF: 4 albuterol sulfate [Ventolin HFA] 90 mcg/actuation HFA aerosol inhaler 2 puff inhalation Q6H PRN (Reason: bronchospasm) Qty: 8.5 RF: 3 benzonatate 100 mg capsule 100 mg PO TID PRN (Reason: cough) Qty: 30 RF: 3 (DME) nebulizer and neb kit See Rx Instructions .Route .MEDSUPPLY Qty: 1 RF: 0 albuterol sulfate 2.5 mg /3 mL (0.083 %) solution for nebulization 2.5 mg inhalation QID PRN (Reason: shortness of breath or wheezing) Qty: 180 RF: 3 atorvastatin 10 mg tablet 10 mg PO HS Qty: 90 RF: 3 escitalopram oxalate 20 mg tablet 20 mg PO QAM Qty: 90 RF: 3 omeprazole 20 mg capsule,delayed release(DR/EC) 20 mg PO QAM Qty: 90 RF: 3 Breo Ellipta 100-25 mcg/dose blister with device 1 inh inhalation DAILY PRN (Reason: allergy symptoms) Qty: 3 RF: 3 leflunomide [Arava] 10 mg tablet 10 mg PO QAM RF: 0 fluticasone propionate 50 mcg/actuation spray,suspension 1 sprays intranasal BID PRN (Reason: allergy symptoms) Qty: 1 RF: 0 vitamin E (dl, acetate) 400 unit capsule 400 units PO QAM RF: 0 calcium carbonate-vitamin D3 [Calcium 600 + D(3)] 600 mg(1,500mg) -400 unit tablet 1 tab PO QAM RF: 0 cholecalciferol (vitamin D3) 1,000 unit capsule 1,000 units PO QAM Qty: 90 RF: 0 cyanocobalamin (vitamin B-12) 1,000 mcg tablet 1,000 mcg PO QAM RF: 0 folic acid 1 mg tablet 1 mg PO QAM RF: 0 methotrexate sodium 2.5 mg tablet 20 mg PO WK RF: 0 fluocinonide 0.05 % ointment 1 appln topical TID PRN (Reason: rash) RF: 0 prednisone 20 mg tablet 20 mg PO .COMPLEX PRN (Reason: RA Flare Ups) RF: 0 fexofenadine [Evy Allergy] 180 mg tablet 180 mg PO QAM RF: 0 meclizine 25 mg tablet 25 mg PO UD PRN (Reason: dizziness) RF: 0 triamcinolone acetonide 0.1 % ointment 1 appln TOP BID PRN (Reason: Skin Irritation) RF: 0 Discharge Orders: Discharge Order (Routine); Ordered 05/10/22 Ordered By: Mor Garduno Admission Data Admit Date/Time: 05/09/22 12:17 Attending Provider: Mor Garduno Admit Provider: Jesús Dial Primary Care Provider: Nicole Wilburn Other Providers: Mor Garduno Other Interventions: Discharge Summary Assessment (RN) Last Done: 05/10/22 12:03 Coding Level of Care Code 94642 OBS Care - Discharge Diagnoses COVID-19 U07.1 Allergic rhinitis J30.9 Hyperlipidemia E78.5 COPD (chronic obstructive pulmonary disease) J44.9 Rheumatoid arthritis M06.9 Situational anxiety F41.8 GERD (gastroesophageal reflux disease) K21.9
== END 2022-05-10 13:41 | disposition home or self-care (01) ==
LOC: ED 09:52 → 2N 09:52 → SUATTDRO 12:17 → 2N 13:42